=== PATIENT | female | born 1980 | race Hispanic/Latino ===

== ENCOUNTER 2018-10-09 21:35 | Inpatient (IN) | payer BC, OTHER ==
[2018-10-09 22:09] VITALS: BMI 40.6
[2018-10-09] MEDS ORDERED: Butorphanol Tartrate 1 MG/ML VIAL SLOW IVP PRN (22:14)
[2018-10-09] MEDS ORDERED: Promethazine HCl 25 MG/ML VIAL IM PRN (22:14)
[2018-10-09] MEDS ORDERED: NS / Oxytocin 40 units/1000ml 1,000 ML IV PRN (22:14)
[2018-10-09] MEDS ORDERED: Lidocaine 1% (PF) 30 ML VIAL SC PRN ×2 (22:14→23:25)
[2018-10-09 22:32] LABS: Hemoglobin 11.5 g/dL (12.0-16.0); Mean Corpuscular HGB CONC 33.1 g/dL (32.0-36.0); Mean Corpuscular Hemoglobin 26.7 pg (27.0-31.0); Mean Corpuscular Volume 80.7 fL (78.0-98.0); Mean Platelet Volume 10.2 fL (7.4-10.4); Platelet Count 198 thou/uL (130-400); RBC Distribution Width 15.1 % (11.5-14.5); White Blood Cell (WBC) Count 9.2 thou/uL (4.8-10.8)
[2018-10-09] MEDS: hydrALAZINE 20 MG/ML VIAL SLOW IVP PRN ×3 (22:46→23:15)
[2018-10-09] MEDS: Lactated Ringer's 1,000 ML IV SCH (22:49)
[2018-10-09] MEDS ORDERED: hydrALAZINE 20 MG/ML VIAL SLOW IVP PRN (23:04)
[2018-10-09 23:07] LABS: Creatinine, Urine 153.45 mg/dL (47-110)
[2018-10-09 23:13] LABS: Syphilis Antibody Nonreactive (Nonreactive); Syphilis Antibody Index 0.07 S/CO (<1.00 Non-Reactive)
[2018-10-09] MEDS ORDERED: Calcium Gluc 4.6 MEQ/10 ML (100 MG/ML) SLOW IVP PRN (23:17)
[2018-10-09] MEDS ORDERED: Magnesium Sulfate 20 gm/500 ml 20 GM/500 ML BAG ONE (23:18)
[2018-10-09] MEDS ORDERED: HYDROcodone/Acetaminophen 5/325 mg Tablet PO PRN ×2 (23:25)
[2018-10-09] MEDS ORDERED: Ibuprofen 800 MG TAB PO PRN (23:25)
[2018-10-09] MEDS ORDERED: Penicillin G Potassium 5 MILL.UNITS in Sodium Chloride 0.9% 100 ML IVPB SCH (23:30)
[2018-10-09] MEDS ORDERED: Magnesium Sulfate 20 GM/WATER 500 ML BAG IVPB SCH (23:30)
[2018-10-09 23:58] LABS: HBSAg Index 0.19 S/CO (0-0.99); Hep B Surf Ag Non-Reactive S/CO (NonReactive)
--- NOTE | 2018-10-10 00:24 | PRG ---
DATE OF SERVICE: TIME OF SERVICE: 2325 Hours. Laboratory values resulted the patient's platelet counts within normal limits at 198,000, hematocrit of 37.4%, AST is normal at 17%. The patient's protein to creatinine ratio is actually approximately 1.6, which is consistent with 4+ proteinuria and consistent with preeclampsia. Blood pressures continue to run in the 170s to 180s systolic. We will continue to administer hydralazine, consider switching over to IV labetalol if necessary, although I am somewhat hesitant since the patient is already on 400 mg a day of labetalol to do this. We will begin magnesium sulfate prophylaxis. We will await ultrasound results to establish that the fetus is in cephalic presentation. If so, we will begin Cytotec and then Pitocin, induction of labor. If breech presentation, we will proceed with primary section with stabilized blood pressures. Job ID: [id number]
[2018-10-10] MEDS: Misoprostol 100 MCG TAB VAG SCH ×7 (00:31→21:39)
[2018-10-10] MEDS: hydrALAZINE 20 MG/ML VIAL SLOW IVP PRN ×3 (02:12→22:43)
[2018-10-10] MEDS: NS w/ Oxytocin 10 units 500 ML IV SCH ×2 (03:51→15:53)
[2018-10-10] MEDS: Citalopram 10 MG TAB PO SCH ×2 (03:51→21:40)
[2018-10-10] MEDS: Penicillin G 2.5 MILL.units 2.5 MILL.UNITS in Premix Bag 1 BAG IVPB SCH ×6 (03:52→21:40)
[2018-10-10] MEDS ORDERED: Acetaminophen 500 MG TAB PO SCH (05:00)
--- NOTE | 2018-10-10 05:58 | HP ---
TIME OF SERVICE: 2300 Hours. PRESENTING COMPLAINT: Elevated blood pressures at 35 weeks' gestation. HISTORY OF PRESENT ILLNESS: Ms. Robertson is a 38-year-old G5, P1, Ab3, who is well known to myself and is under my care at [facility]. She is a known chronic hypertensive with adult onset diabetes and obesity. She is visiting through first trimester of her . She has had well-controlled blood pressure on labetalol 200 p.o. b.i.d. along with good control of her diabetes, on metformin 1000 b.i.d. along with Lantus 15 b.i.d. She reports today some mild headache and was noted to have elevated blood pressures at home, 160s to 180s systolic over 90s diastolic. She denies headache or right upper quadrant pain. Blood pressures have been well controlled throughout her . OB-TRUST ADMINISTRATOR HISTORY: x1 with induction at term and SAB x3. Blood type A positive. Antibody negative. Pap negative. Rubella immune. VDRL, nonreactive. Hepatitis B , GC, chlamydia are negative. Group B strep done today. MEDICAL HISTORY: Diabetes and hypertension. SURGICAL HISTORY: Denies. ALLERGIES: DENIES. MEDICATIONS: 1. Metformin 1000 b.i.d. 2. Labetalol 200 b.i.d. 3. Citalopram 20 p.o. daily. 4. Lantus 15 sq b.i.d. SOCIAL HISTORY: Denies tobacco, alcohol or drug use. FAMILY HISTORY: Noncontributory. REVIEW OF SYSTEMS: Noncontributory. PHYSICAL EXAMINATION: GENERAL: Morbidly obese, female, in no acute distress. DTRs 1+. VITAL SIGNS: Temperature 98.5, respirations 18, pulse 85, blood pressure on initial presentation 178/92. HEENT: Within normal limits. LUNGS: Clear to auscultation bilaterally. HEART: Regular rate and rhythm. ABDOMEN: Soft and nontender. Fundal height 37 cm. FHT is 140s. Vulvar lesions absent, difficult to reach cervix, posteriorly closed, long, and high, presenting part not palpable. EXTREMITIES: Mild edema 1+. IMPRESSION: Chronic hypertension with adult onset diabetes, requiring insulin and oral hypoglycemics at 35 weeks' gestation by good criteria, now with elevated blood pressures. PLAN: PI labs. Continue current medications. Add hydralazine IV q.15 minutes as needed for systolics 170s or greater, we will get ultrasound to establish position. We will see how her blood pressure responds and consider magnesium sulfate for seizure prophylaxis. Anticipate need for induction of labor for severe gestational hypertension versus preeclampsia with adult onset diabetes. We will make decision on administration of magnesium sulfate based on laboratory results as well as sustained blood pressures. Job ID: [id number] MTDD
[2018-10-10] MEDS ORDERED: Fentanyl 4 mcg/Bup 0.1% Cadd 100 ML ONE ×2 (06:49→15:03)
[2018-10-10] MEDS: Magnesium Sulfate 20 gm/500 ml 20 GM/500 ML BAG IVPB SCH ×2 (07:14→16:49)
--- NOTE | 2018-10-10 07:33 | PRG ---
DATE OF SERVICE: 10/10/2018 TIME OF SERVICE: 0645 hours. SUBJECTIVE: Ms. Robertson is resting comfortably. She denies headache at this time. OBJECTIVE: VITAL SIGNS: The patient remains afebrile. Normal pulse. Normal respiratory rate. Blood pressures have ranged 140s to 170s systolic. Overnight, she has received a total of 4 doses of hydralazine, the last being 5 mg IV at approximately 0230. The patient has had good urine output of greater than 100 mL per hour. heart rate tracings remained category 1. LUNGS: Clear to auscultation bilaterally. HEART: Regular rate and rhythm. ABDOMEN: Soft. She has palpable contractions, which she is feeling at this time. GENITALIA: Vulva without lesions. Vagina is without discharge. Cervical exam by RN with Cytotec placement for the last 30 minutes was 1, 25, and -2, cephalic. EXTREMITIES: Without clubbing or cyanosis, and pertinent 1 to 2+ edema, 1+ DTRs. LABORATORY DATA: [id number] glucose at midnight was 126, checking q.6 hours. Reports ultrasound was performed, which revealed cephalic presentation with adequate amniotic fluid. IMPRESSION: Severe preeclampsia due to blood pressure criteria with marked proteinuria in a background of chronic hypertension and insulin-dependent adult-onset diabetes at 35 weeks' gestation. PLAN: 1. Continue magnesium sulfate. 2. Continue p.o. labetalol. 3. IV hydralazine as needed. 4. Decrease metformin and Lantus to one-half of normal dose while in labor on clear liquids. 5. Continue Cytotec and then initiate Pitocin. 6. Anticipate spontaneous vaginal delivery. We will discuss the patient's care and hand off to Dr. Monica Cortez, OB hospitalist at 0800 hours. Job ID: [id number]
[2018-10-10] MEDS ORDERED: metFORMIN 500 MG TAB PO SCH (08:00)
[2018-10-10] MEDS ORDERED: ePHEDrine/0.9% NaCl/PF SYRINGE 50 mg/10 ml SLOW IVP PRN (08:27)
[2018-10-10] MEDS ORDERED: Lactated Ringer's 500 ML IV PRN (08:27)
[2018-10-10] MEDS ORDERED: Naloxone HCl 0.4 mg/ml Vial IVP PRN ×2 (08:27)
[2018-10-10] MEDS ORDERED: Eucerin (Mineral Oil/Petrolatum,White) 30 gm Jar TOP PRN (08:27)
[2018-10-10] MEDS: metFORMIN 500 MG TAB PO SCH ×2 (08:29→17:13)
[2018-10-10] MEDS ORDERED: Fentanyl 4 mcg/Bupivacaine 0.1% Cassette 100 ML EPIDURAL SCH (08:30)
[2018-10-10] MEDS ORDERED: Communication Order-Pharmacy FS SCH (08:30)
[2018-10-10] MEDS: Labetalol 100 MG TAB PO SCH ×2 (08:30→21:07)
[2018-10-10] MEDS ORDERED: Insulin Glargine 10 UNITS in Pre-Filled Syringe 1 EACH SC SCH ×2 (09:00→21:00)
[2018-10-10] MEDS ORDERED: Citalopram 10 MG TAB PO SCH (09:00)
[2018-10-10] MEDS ORDERED: Insulin Glargine 7 UNITS in Pre-Filled Syringe 1 EACH SC SCH ×2 (09:00→21:00)
--- NOTE | 2018-10-10 09:12 | ULT ---
PRELIMINARY REPORT/[facility]/EMERGENTY AFTER-HOURS PROCEDURE US After First Trimester, Transabdominal EXAM DATE/TIME: 10/09/2018 11:31 PM CLINICAL HISTORY: 38 years old, female; Condition or disease; Lmp or gestational age (weeks): 36w4d; Pre-eclampsia; 6th ; ; Patient HX: Evaluated position, efw and sherrie TECHNIQUE: Real-time transabdominal obstetrical ultrasound of the maternal pelvis and a second or third trimeste r with image documentation. COMPARISON: No relevant prior studies available. FINDINGS: GESTATION: Gestation: Single live intrauterine gestation. Heart rate: heart rate 149 beats per minute. Presentation: position is vertex. Placenta: Placenta is anterior and unremarkable. Amniotic fluid: Amniotic fluid volume is normal with an SHERRIE of 14.2 cm. BIOMETRY: Estimated gestational age: biometry measurements are compatible with estimated gestational age of 36 weeks 4 days. Estimated weight: Estimated weight is 3023 g. IMPRESSION: Single live intrauterine gestation as above. Thank you for allowing us to participate in the care of your patient. Dictated and Authenticated by: Wilber Polanco MD 10/10/2018 12:21 AM Central Time ([place] & [place]) FINAL REPORT OB ULTRASOUND: HISTORY: Third-trimester . Preeclampsia. Evaluate fetus. FINDINGS: Multiple longitudinal and transverse images of an intrauterine are obtained. Real-time, co eliz flow, and M-mode sonography demonstrates a viable IUP. The fetus is in a cephalic presentation. The placenta is anterior and grade II. Amniotic fluid index measures 14.2 cm. Estimated gestationa l age is 36 weeks 4 days with an estimated date of delivery November 02, 2018. Estimated weigh t is 3023 gm +/- 447 gm. Final report. Preliminary exam was performed by [facility]. I conc ur with the dictation from [facility]. POS: [facility]
[2018-10-10] MEDS: Ondansetron PF 4 MG/2 ML Vial IVP PRN (12:58)
[2018-10-10] MEDS: Lactated Ringer's 1,000 ML IV SCH (13:02)
[2018-10-10] MEDS ORDERED: Acetaminophen 500 MG TAB PO PRN (13:07)
--- NOTE | 2018-10-10 17:16 | PDOC.LDPN ---
Labor & Delivery Progress Note - Subjective Subjective: comfortable - Objective Vital signs reviewed and normal: yes General: NAD, resting Uterine fundus: non tender Dilation: 6 Effacement: 75% Station: -2 FHT: category 1 AROM: clear fluid FSE placed: yes Plan: continue plan of care
[2018-10-10] MEDS: NS / Oxytocin 40 units/1000ml 1,000 ML IV PRN ×2 (20:00→21:03)
--- NOTE | 2018-10-10 20:18 | PDOC.OPDEL ---
OB Operative/Delivery Note Delivery Dr/Surgeon: Monica Cortez MD Pre-Delivery Diagnosis: medically indicated induction Procedure/Post Delivery Dx: spontaneous vaginal delivery Weeks gestation: 35 Anesthesia: epidural - Findings A Sex: male (Doron Figueroa) Weight: 6 lb 7 oz - 1 min: 6 - 5 min: 7 - Additional Findings/Plan Placenta delivered: spontaneous Repaired Obstetrical Laceration: none Estimated blood loss: 243ml Compilations/Other Findings: Male infant delivered over intact perineum and handed to waiting NICU team. Spontaneous cry but needed CPAP in warmer. Mom doing well. Post delivery plan: recovery in LICU
[2018-10-10] MEDS ORDERED: Misoprostol 200 MCG TAB VAG PRN (20:34)
[2018-10-10] MEDS ORDERED: Benzocaine/Menthol 20-0.5% 60 ML CAN TOP PRN (20:34)
[2018-10-10] MEDS ORDERED: Lanolin Ointment 7 GM TUBE TOP PRN (20:34)
[2018-10-10] MEDS ORDERED: diphenhydrAMINE 25 MG CAP PO PRN (20:34)
[2018-10-10] MEDS ORDERED: Bisacodyl 10 MG SUPP PR PRN (20:34)
[2018-10-10] MEDS ORDERED: Milk Of Magnesia 30 ML UDCUP PO PRN (20:34)
[2018-10-10] MEDS ORDERED: Methylergonovine 0.2 MG/ML VIAL IM PRN (20:34)
[2018-10-10] MEDS ORDERED: Preparation H Ointment 28 GM TUBE PR PRN (20:34)
[2018-10-10] MEDS ORDERED: HYDROcodone/Acetaminophen 5/325 mg Tablet PO PRN ×2 (20:34)
[2018-10-10] MEDS ORDERED: Calcium Gluconate 4.6 MEQ in Sodium Chloride 0.9% 100 ML IVPB PRN (20:36)
[2018-10-10] MEDS ORDERED: Magnesium Sulfate 20 gm/500 ml 20 GM/500 ML BAG IVPB SCH (20:45)
[2018-10-10] MEDS ORDERED: NS / Oxytocin 40 units/1000ml 1,000 ML IV SCH (20:45)
[2018-10-10] MEDS: Docusate Calcium (SURFAK) 240 MG CAP PO SCH (21:08)
[2018-10-10] MEDS: Ibuprofen 800 MG TAB PO SCH (22:23)
[2018-10-11] MEDS: Magnesium Sulfate 20 gm/500 ml 20 GM/500 ML BAG IVPB SCH (02:54)
[2018-10-11] MEDS: Ibuprofen 800 MG TAB PO SCH (06:16)
--- NOTE | 2018-10-11 07:29 | PDOC.PP ---
Post Progress Note Post Day #: 1 Subjective: Complains of mild head and neck ache, believes it is from the position she has been lying in. Requesting Tylenol. Otherwise is without complaints this morning. Vital Signs (12 hours) Temp Pulse Resp BP BP 10/10/18 22:43 99 179/87 H 10/10/18 21:07 93 156/68 H 10/10/18 20:37 98.3 F 106 H 18 163/74 H 10/10/18 20:35 98.3 F 106 H 18 163/74 H Weight Weight 222 lb - Physical Examination General: NAD Respiratory: non-labored breathing Abdominal: lochia (normal), no distention, appropriately TTP Fundus firm & at: U-3 Extremities: negative homans (B) Neurological: no gross focal deficits Psychiatric: A&Ox3, normal affect Result Diagrams: 10/09/18 22:17 Additional Labs: Post Labs Blood Type A POSITIVE 10/09/18 22:17 Hep Bs Antigen Non-Reactive S/CO (NonReactive) 10/09/18 22:17 (1) Pre-eclampsia superimposed on chronic hypertension, delivered Code(s): O11.4 - PRE-EXISTING HTN WITH PRE-ECLAMPSIA, COMP CHILDBIRTH; O10.92 - UNSP PRE-EXISTING HYPERTENSION COMPLICATING CHILDBIRTH Status: Acute (2) Morbid obesity Code(s): E66.01 - MORBID (SEVERE) OBESITY DUE TO EXCESS CALORIES Status: Acute (3) Diabetes in Code(s): O24.919 - UNSP DIABETES MELLITUS IN , UNSPECIFIED TRIMESTER Status: Acute - Assessment/Plan Continue routine care. Magnesium to continue through 24 hours post delivery. Given Tylenol for headache.
[2018-10-11] MEDS: Ondansetron PF 4 MG/2 ML Vial IVP PRN (07:49)
[2018-10-11] MEDS ORDERED: metFORMIN 500 MG TAB PO SCH ×2 (08:00→09:00)
[2018-10-11] MEDS ORDERED: Ibuprofen 800 MG TAB PO SCH (08:45)
[2018-10-11] MEDS ORDERED: Measles/Mumps/Rubella 10 MCG/0.5 ML VIAL SC ONE (09:00)
[2018-10-11] MEDS ORDERED: Varicella virus, LIVE 0.5 ML VIAL SC ONE (09:00)
[2018-10-11] MEDS ORDERED: Adacel (T-DAP) 0.5 ML SYRINGE IM ONE (09:00)
[2018-10-11] MEDS ORDERED: Calcium Gluconate 4.6 MEQ in Sodium Chloride 0.9% 100 ML IVPB SCH (09:00)
[2018-10-11] MEDS: Docusate Calcium (SURFAK) 240 MG CAP PO SCH ×2 (09:13→21:58)
[2018-10-11] MEDS: Prenatal Vitamin 1 TAB PO SCH (09:14)
[2018-10-11 09:20] LABS: #Lymphocytes 1.5 thou/uL (1.20-3.40); #Monocytes 0.5 thou/uL (0.11-0.59); #Neutrophils 8.5 thou/uL (1.40-6.50); %Basophils 0.3 % (0.0-1.0); %Eosinophils 0.4 % (0.0-10.0); %Lymphocytes 14.2 % (21.0-51.0); %Monocytes 4.7 % (0.0-10.0); %Neutrophils 80.4 % (42.0-75.0); Hemoglobin 10.4 g/dL (12.0-16.0); Mean Corpuscular Hemoglobin 26.2 pg (27.0-31.0); Mean Corpuscular Volume 82.1 fL (78.0-98.0); Platelet Count 160 thou/uL (130-400); RBC Distribution Width 15.3 % (11.5-14.5); Red Blood Cell (RBC) Count 3.95 mill/uL (4.20-5.40); White Blood Cell (WBC) Count 10.6 thou/uL (4.8-10.8)
[2018-10-11 09:43] LABS: AST (SGOT) 28 U/L (5-34); Anion Gap 12 mmol/L (10-20); BUN (Urea Nitrogen) 6 mg/dL (7.0-18.7); Calc. Creatinine Clearance 220 mL/min (70-130); Calcium 7.2 mg/dL (7.8-10.44); Carbon Dioxide 18 mmol/L (22-29); Chloride 105 mmol/L (98-107); Estimated GFR-MDRD Greater than 90; Glucose 107 mg/dL (70-105); Magnesium 4.9 mg/dL (1.6-2.6); Potassium 4.1 mmol/L (3.5-5.1); Sodium 131 mmol/L (136-145)
[2018-10-11] MEDS: Insulin Glargine 5 UNITS in Pre-Filled Syringe 1 EACH SC SCH ×2 (09:45→21:55)
[2018-10-11] MEDS: Citalopram 10 MG TAB PO SCH (09:49)
[2018-10-11] MEDS: hydrALAZINE 20 MG/ML VIAL SLOW IVP PRN ×5 (09:55→13:57)
[2018-10-11] MEDS: Ferrous Sulfate 325 MG TAB PO SCH ×2 (10:47→19:30)
[2018-10-11] MEDS ORDERED: Furosemide 40 MG/4 ML VIAL SLOW IVP PRN (11:09)
[2018-10-11] MEDS ORDERED: Furosemide 40 MG/4 ML VIAL SLOW IVP SCH (11:15)
[2018-10-11] MEDS: Acetaminophen 500 MG TAB PO PRN ×2 (12:17→19:39)
[2018-10-11] MEDS: Lactated Ringer's 1,000 ML IV SCH (12:19)
[2018-10-11] MEDS ORDERED: Labetalol 100 MG TAB PO SCH (12:45)
[2018-10-11] MEDS: metFORMIN 500 MG TAB PO SCH (18:00)
[2018-10-11] MEDS: Labetalol HCl 100 MG/20 ML VIAL SLOW IVP PRN (20:42)
[2018-10-11] MEDS ORDERED: NIFEdipine XL 30 MG TAB PO SCH (21:15)
[2018-10-11] MEDS: Labetalol 100 MG TAB PO SCH (21:57)
[2018-10-11] MEDS: NIFEdipine XL 30 MG TAB PO SCH (22:00)
[2018-10-12] MEDS: Ibuprofen 800 MG TAB PO SCH ×4 (01:56→22:10)
[2018-10-12] MEDS: Sodium Chloride 0.9% 10 ML ONE (02:01)
[2018-10-12] MEDS: Labetalol HCl 100 MG/20 ML VIAL SLOW IVP PRN (05:26)
[2018-10-12] MEDS: Ferrous Sulfate 325 MG TAB PO SCH ×2 (08:00→18:54)
[2018-10-12] MEDS: metFORMIN 500 MG TAB PO SCH ×2 (08:10→17:08)
--- NOTE | 2018-10-12 09:13 | PRG ---
DATE OF SERVICE: SUBJECTIVE: The patient is a 38-year-old female, who is now day two, status post spontaneous vaginal delivery complicated by chronic hypertension, superimposed preeclampsia, and type 2 diabetes. The patient's course has been complicated by IV magnesium for seizure prophylaxis and series of severe range blood pressures yesterday. She required several doses of IV hydralazine and IV labetalol. Ultimately, the patient is being continued on 200 mg of labetalol twice a day with Procardia XL 30 mg once a day added to her regimen. The patient's blood pressures since about 10 o'clock last night have primarily been in the mild range. The patient reports she is tolerating p.o., voiding on her own, having decreased lochia and good pain control. Magnesium was turned off last night about 8:30. OBJECTIVE: VITAL SIGNS: It appears her most current blood pressure is 158/70, heart rate of 80, respiratory rate 17, temperature 98.2. GENERAL: She appears to be in no acute distress. She is alert, oriented, cooperative, pleasant to interact with. HEAD: Normocephalic, atraumatic. ABDOMEN: Fundus is firm. EXTREMITIES: Nontender with some edema. ASSESSMENT AND PLAN: The patient is a 38-year-old day two, status post spontaneous vaginal delivery at 35 weeks after indicated induction for chronic hypertension, superimposed preeclampsia. Blood pressures have appeared to be much better controlled now with labetalol 200 twice a day and Procardia 30 mg once a day. The patient is safe to transfer to the floor for continued care. We will continue to watch her blood pressures over the next 24 hours. If they remain within the mild range, the patient can be discharged tomorrow. Job ID: [id number] [facility]
[2018-10-12] MEDS: Citalopram 10 MG TAB PO SCH (09:22)
[2018-10-12] MEDS: Labetalol 100 MG TAB PO SCH ×2 (09:22→20:20)
[2018-10-12] MEDS: Prenatal Vitamin 1 TAB PO SCH (09:24)
[2018-10-12] MEDS: Docusate Calcium (SURFAK) 240 MG CAP PO SCH ×2 (09:24→20:19)
[2018-10-12] MEDS ORDERED: Milk Of Magnesia 30 ML UDCUP PO PRN (09:27)
[2018-10-12] MEDS: NIFEdipine XL 30 MG TAB PO SCH (09:39)
[2018-10-12] MEDS: Insulin Glargine 5 UNITS in Pre-Filled Syringe 1 EACH SC SCH ×2 (09:43→22:09)
[2018-10-12] MEDS ORDERED: NIFEdipine 10 MG CAP ONE (13:53)
--- NOTE | 2018-10-12 14:05 | PDOC.EVN ---
Event Note - Event Note Event Note: OBPAOLA Scale Technician Unit: L&D PPD2 Time of intervention: 1355 Called prior to floor transport that that patient, now PPD2 from , had a systolic BP of 174/84 (ASX). Meds are Procardia 30mg XL po QAM, Labetolol 200mg po BID. I just ordered procardia 10mg po x 1 now for urgent hypertension. We will do serial BP checks after dose and if less than 150 we can transfer to [facility].
[2018-10-12] MEDS ORDERED: NIFEdipine 10 MG CAP PO SCH ×2 (14:15→18:00)
--- NOTE | 2018-10-12 15:28 | PDOC.EVN ---
Event Note - Event Note Event Note: L&D: Post nifedpine dose: Med given at 1355: Follow up BPs: 180/81, 164/75, 148/70, 161/75. I will increase labetolol from 200mg po BID to 400mg po BID
--- NOTE | 2018-10-12 17:54 | PDOC.EVN ---
Event Note - Event Note Event Note: Called 10 minutes ago about BP of 180/70. I have ordered nifedipine 20mg po X 1 now. I am on my way to see her now on 3SE
[2018-10-12] MEDS: Penicillin G 2.5 MILL.units 2.5 MILL.UNITS in Premix Bag 1 BAG IVPB SCH ×2 (19:02→19:03)
[2018-10-12] MEDS: Misoprostol 100 MCG TAB VAG SCH ×2 (19:02→19:03)
--- NOTE | 2018-10-12 19:44 | PRG ---
DATE OF SERVICE: 10/12/2018 TIME OF EVALUATION: 1800 hours to 1805 hours. LOCATION: [facility]. REASON FOR EVALUATION: Called for blood pressure evaluation. I was called because the patient's blood pressure was 180, but asymptomatic. I saw the patient at bedside along with Leti, the patient's nurse. The patient states that she is doing well. No headaches or visual changes. No right upper quadrant pain. I discussed with her the plan to give her Procardia 20 mg immediate release now to bring her systolic pressure down. The patient voiced understanding. PHYSICAL EXAMINATION: There is no significant lower extremity edema. PLAN: Plan was reviewed with her, family, and Leti at bedside. For now, we will do serial blood pressures after this medication is given to look for result. I have also discussed with her the adjustment of her labetalol from 200 up to 400 mg p.o. b.i.d. Job ID: [id number]
--- NOTE | 2018-10-12 20:10 | PDOC.EVN ---
Event Note - Event Note Event Note: BPs have responded...next labetolol 400mg is at 2100
[2018-10-13] MEDS ORDERED: Sodium Chloride 0.9% 10 ML ONE ×5 (00:42→19:14)
[2018-10-13] MEDS ORDERED: Furosemide 40 MG/4 ML VIAL SLOW IVP SCH (00:45)
[2018-10-13] MEDS: Labetalol HCl 100 MG/20 ML VIAL SLOW IVP PRN ×4 (01:29→19:22)
[2018-10-13] MEDS: Ibuprofen 800 MG TAB PO SCH ×3 (06:15→21:37)
[2018-10-13] MEDS ORDERED: NIFEdipine XL 30 MG TAB PO SCH ×2 (08:36→14:45)
[2018-10-13] MEDS: Ferrous Sulfate 325 MG TAB PO SCH ×2 (08:37→18:16)
[2018-10-13] MEDS: Prenatal Vitamin 1 TAB PO SCH (08:51)
[2018-10-13] MEDS: metFORMIN 500 MG TAB PO SCH ×2 (08:51→18:15)
[2018-10-13] MEDS: Insulin Glargine 5 UNITS in Pre-Filled Syringe 1 EACH SC SCH ×2 (08:52→21:37)
[2018-10-13] MEDS ORDERED: NIFEdipine XL 60 MG TAB PO SCH (09:00)
[2018-10-13] MEDS: Labetalol 100 MG TAB PO SCH ×2 (09:33→21:39)
--- NOTE | 2018-10-13 09:33 | PRG ---
DATE OF SERVICE: 10/13/2018 SUBJECTIVE: The patient is now day three, status post a spontaneous vaginal delivery for chronic hypertension with superimposed preeclampsia. Her course has been complicated by repeated severe range of blood pressures and has required multiple adjustments to her medications. This morning, the patient was beginning to spike severe range pressures again. We have increased her p.o. medications last night from 200 to 400 mg of labetalol twice a day. I will be increasing this morning her Procardia from 30 to 60 mg once a day and giving her a dose of IV labetalol for coverage in the short term. The patient reports that she is otherwise doing well and tolerating p.o., voiding on her own, having decreased lochia and good pain control. OBJECTIVE: VITAL SIGNS: Current blood pressure is 168/87, pulse of 82, temperature 98.6, respiratory rate of 20, and saturating 95% on room air. GENERAL: She appears to be in no acute distress. She is alert, oriented, cooperative, and pleasant to interact with. HEENT: Head is normocephalic and atraumatic. Fundus is firm. EXTREMITIES: Nontender and nonedematous. ASSESSMENT/PLAN: The patient is day three, status post a spontaneous vaginal delivery for chronic hypertension, superimposed preeclampsia. We will continue to monitor the patient in-house, as we are adjusting medications for appropriate coverage. Anticipate her to be with us for the next day or two. Job ID: [id number]
[2018-10-13] MEDS: Citalopram 10 MG TAB PO SCH (09:34)
[2018-10-13] MEDS: Docusate Calcium (SURFAK) 240 MG CAP PO SCH ×2 (09:34→21:37)
[2018-10-13] MEDS: Sodium Chloride 0.9% 10 ML ONE ×2 (11:05→18:15)
--- NOTE | 2018-10-13 11:08 | PDOC.EVN ---
Event Note - Event Note Event Note: Called by PP RN for elevated BP. Now 161/74. Feels well, denies PARADA or visual changes. Currently on Labetalol 400 po BID and Procardia XL increased to 60 po this AM. Will give Labetalol 20 mg IV and consult Medicine Hospitalist for BP evaluation.
--- NOTE | 2018-10-13 22:03 | CON ---
DATE OF CONSULTATION: 10/13/2018 CONSULTING PHYSICIAN: Dr. Clark. REASON FOR CONSULTATION: Blood pressure management. HISTORY OF PRESENT ILLNESS: The patient is a 38-year-old, post premature delivery in a patient who has a history of hypertension and diabetes, who delivered a baby boy 3 days ago and the primary team had a hard time to control her blood pressure. PAST MEDICAL HISTORY: Positive for, 1. Diabetes mellitus type 2. 2. Hypertension. 3. Anxiety. PAST SURGICAL HISTORY: None. MEDICATIONS: Prior to , 1. Lisinopril. 2. Citalopram. 3. Metformin. Medications she is taking now, 1. Citalopram 10 mg once a day. 2. Labetalol 400 mg twice a day. 3. Metformin 500 mg twice a day. 4. P.r.n. hydralazine for blood pressure control. 5. Labetalol for blood pressure control. 6. The patient is also on insulin glargine 5 units every morning. FAMILY HISTORY: Father and mother had hypertension and hyperlipidemia. SOCIAL HISTORY: She does not have any history of cigarette smoking, alcohol intake or use of any illicit drugs. ALLERGIES: NONE. REVIEW OF SYSTEMS: All 14 systems were reviewed and this review is only positive for symptoms, which are mentioned in HPI. PHYSICAL EXAMINATION: VITAL SIGNS: Blood pressure is 153/74, pulse is 89, respiratory rate is 20, O2 saturation 95% on room air. She is obese. Her BMI is 40. HEENT: Head is atraumatic, normocephalic. Eyes are PERRLA. Sclerae nonicteric. Oral mucosa is moist. NECK: Supple. No lymphadenopathy. Thyroid is not palpable. LUNGS: Clear. HEART: S1, S2 normal. No S3, no S4. No any murmur. ABDOMEN: Soft, obese, nontender. Uterus is not palpable. Bowel sounds are present. No organomegaly. EXTREMITIES: No clubbing, cyanosis, or edema. NEUROLOGIC: She is alert and oriented x4. There are no any motor or sensory deficits. Cranial nerves are intact. LABORATORY DATA: Glycemia is ranging from 83 to 140. Her kidney function is within normal limits. She showed some anemia with hemoglobin of 10.4, two days ago. IMPRESSION: 1. Hypertension, which is chronic. 2. Superimposed preeclampsia. PLAN AND RECOMMENDATION: The patient's labetalol and Procardia doses were increased recently in the last 24 hours, so my recommendation is to continue observation on those new doses of those two medications plus p.r.n. hydralazine or labetalol IV push as needed for systolic more than 160. Otherwise, we are going to give additional 30 mg of home nifedipine tonight and she will be on 90 mg of nifedipine tomorrow morning and 400 mg of labetalol twice a day and that is our recommendation regarding blood pressure. Thank you for allowing us to participate in this patient's care. Job ID: [id number]
--- NOTE | 2018-10-14 02:56 | PDOC.PP ---
Post Progress Note Post Day #: 4 Subjective: PP4 38 yo F patient still on PP being monitored for BP. The patient denies pain at this time. No headache, chest pain, or SOB, no leg swelling. Patient is walking, eating, and drinking without difficulty. Patient's BP medications have been titrated up quickly over the last 2 days. Patient states she has some anxiety about her bp, gets nervous when nurses check BP. Snoring upon examiner entering the room. PO intake tolerated: yes Flatus: yes Ambulation: yes Vital Signs (12 hours) Temp Pulse Resp BP BP BP BP 10/13/18 23:37 98.4 F 94 16 149/78 H 10/13/18 22:55 89 159/82 H 10/13/18 21:39 95 165/88 H 10/13/18 21:35 95 18 165/88 H 10/13/18 20:05 10/13/18 19:45 98.7 F 88 16 162/78 H 10/13/18 19:22 86 179/83 H 10/13/18 19:15 86 172/83 H 10/13/18 18:53 179/86 H 10/13/18 18:08 178/76 H 10/13/18 16:46 97 161/80 H 10/13/18 16:00 98.3 F 103 H 16 159/77 H Pulse Ox 10/13/18 23:37 10/13/18 22:55 10/13/18 21:39 10/13/18 21:35 10/13/18 20:05 95 10/13/18 19:45 95 10/13/18 19:22 10/13/18 19:15 10/13/18 18:53 10/13/18 18:08 10/13/18 16:46 10/13/18 16:00 98 Weight Weight 100.698 kg - Physical Examination General: NAD Cardiovascular: no m/r/g, RRR Respiratory: clear to auscultation bilaterally Abdominal: + bowel sounds, appropriately TTP Fundus firm & at: umbilicus Extremities: negative homans (B) Skin: no rash Neurological: no gross focal deficits Psychiatric: A&Ox3, normal affect Result Diagrams: 10/11/18 09:00 10/11/18 09:00 Additional Labs: Post Labs Blood Type A POSITIVE 10/09/18 22:17 Hep Bs Antigen Non-Reactive S/CO (NonReactive) 10/09/18 22:17 (1) Diabetes in Code(s): O24.919 - UNSP DIABETES MELLITUS IN , UNSPECIFIED TRIMESTER Status: Acute (2) Morbid obesity Code(s): E66.01 - MORBID (SEVERE) OBESITY DUE TO EXCESS CALORIES Status: Acute (3) Pre-eclampsia superimposed on chronic hypertension, delivered Code(s): O11.4 - PRE-EXISTING HTN WITH PRE-ECLAMPSIA, COMP CHILDBIRTH; O10.92 - UNSP PRE-EXISTING HYPERTENSION COMPLICATING CHILDBIRTH Status: Acute (4) Vaginal delivery Code(s): O80 - ENCOUNTER FOR FULL-TERM UNCOMPLICATED DELIVERY Status: Acute - Assessment/Plan #PP day 4 - eating, drinking, voiding without difficulty # chronic HTN - labetalol increased to 400mg BID, also procardia increased to 90mg daily - will give adjustment some time for now - no pre-e sxs - will check CBC, CMP this AM - suspect anxiety, possible KG could contribute - patient quitting caffeine - only needed 1 PRN dose labetalol yesterday - appreciate hospitalist recs Dispo: 1-2 days <Paco Morton - Last Filed: 10/14/18 02:59> Vital Signs (12 hours) Temp Pulse Resp BP BP BP BP 10/14/18 03:58 98.6 F 97 17 156/82 H 10/13/18 23:37 98.4 F 94 16 149/78 H 10/13/18 22:55 89 159/82 H 10/13/18 21:39 95 165/88 H 10/13/18 21:35 95 18 165/88 H 10/13/18 20:05 10/13/18 19:45 98.7 F 88 16 162/78 H 10/13/18 19:22 86 179/83 H 10/13/18 19:15 86 172/83 H 10/13/18 18:53 179/86 H Pulse Ox 10/14/18 03:58 10/13/18 23:37 10/13/18 22:55 10/13/18 21:39 10/13/18 21:35 10/13/18 20:05 95 10/13/18 19:45 95 10/13/18 19:22 10/13/18 19:15 10/13/18 18:53 Weight Weight 100.698 kg Result Diagrams: 10/11/18 09:00 10/11/18 09:00 Additional Labs: Post Labs Blood Type A POSITIVE 10/09/18 22:17 Hep Bs Antigen Non-Reactive S/CO (NonReactive) 10/09/18 22:17 <Filiberto Santillan - Last Filed: 10/14/18 06:27> Attending Addendum - Attending Addendum Date/Time: 10/14/18626 I personally evaluated the patient and discussed the management with Dr. Morton. I agree with the Assessment and Plan documented above. <Filiberto Santillan - Last Filed: 10/14/18 06:27>
[2018-10-14] MEDS ORDERED: Sodium Chloride 0.9% 0 ML ONE (03:56)
[2018-10-14] MEDS: Ibuprofen 800 MG TAB PO SCH ×3 (06:03→21:24)
[2018-10-14 06:50] LABS: #Basophils 0.1 thou/uL (0.0-0.2); #Eosinphils 0.3 thou/uL (0.0-0.7); #Monocytes 0.5 thou/uL (0.11-0.59); #Neutrophils 5.2 thou/uL (1.40-6.50); %Basophils 1.3 % (0.0-1.0); %Eosinophils 3.6 % (0.0-10.0); %Lymphocytes 24.7 % (21.0-51.0); %Monocytes 5.6 % (0.0-10.0); %Neutrophils 64.8 % (42.0-75.0); Hemoglobin 10.9 g/dL (12.0-16.0); Mean Corpuscular HGB CONC 32.2 g/dL (32.0-36.0); Mean Corpuscular Hemoglobin 26.7 pg (27.0-31.0); Mean Platelet Volume 8.2 fL (7.4-10.4); Platelet Count 251 thou/uL (130-400); RBC Distribution Width 15.5 % (11.5-14.5); Red Blood Cell (RBC) Count 4.09 mill/uL (4.20-5.40)
[2018-10-14 07:13] LABS: ALT (SGPT) 46 U/L (8-55); AST (SGOT) 36 U/L (5-34); Albumin 3.1 g/dL (3.5-5.0); Alkaline Phosphatase 94 U/L (40-150); Anion Gap 15 mmol/L (10-20); BUN (Urea Nitrogen) 14 mg/dL (7.0-18.7); Bilirubin, Total 0.2 mg/dL (0.2-1.2); Calc. Creatinine Clearance 196 mL/min (70-130); Carbon Dioxide 23 mmol/L (22-29); Chloride 107 mmol/L (98-107); Estimated GFR-MDRD Greater than 90; Globulin 3.6 g/dL (2.4-3.5); Glucose 76 mg/dL (70-105); Potassium 3.7 mmol/L (3.5-5.1); Protein, Total 6.7 g/dL (6.0-8.3); Sodium 141 mmol/L (136-145)
[2018-10-14] MEDS: Ferrous Sulfate 325 MG TAB PO SCH ×2 (07:54→17:02)
--- NOTE | 2018-10-14 08:15 | PDOC.EVN ---
Event Note - Event Note Event Note: Admitting Officer: Lab check: CBC and CMP ok BP of 160 noted this AM: Increase Labetolol from 400mg BID to 600mg BID
[2018-10-14] MEDS: metFORMIN 500 MG TAB PO SCH ×2 (08:26→17:07)
[2018-10-14] MEDS: Insulin Glargine 5 UNITS in Pre-Filled Syringe 1 EACH SC SCH ×2 (09:42→21:22)
[2018-10-14] MEDS: Labetalol 100 MG TAB PO SCH ×2 (09:42→21:24)
[2018-10-14] MEDS: Citalopram 10 MG TAB PO SCH (09:43)
[2018-10-14] MEDS: Prenatal Vitamin 1 TAB PO SCH (09:43)
[2018-10-14] MEDS: NIFEdipine XL 90 MG TAB PO SCH (09:43)
[2018-10-14] MEDS: Docusate Calcium (SURFAK) 240 MG CAP PO SCH ×2 (09:43→21:24)
--- NOTE | 2018-10-14 10:31 | PDOC.PN ---
- Subjective Encounter Start Date: 10/14/18 Encounter Start Time: 08:15 Patient seen and examined. No new complaints. No overnight events - Objective MAR Reviewed: Yes Vital Signs & Weight: Vital Signs (12 hours) Temp Pulse Resp BP BP Pulse Ox 10/14/18 08:00 98.3 F 98 16 161/81 H 96 10/14/18 03:58 98.6 F 97 17 156/82 H 10/13/18 23:37 98.4 F 94 16 149/78 H 10/13/18 22:55 89 159/82 H Weight Weight 222 lb I&O: 10/13/18 10/14/18 10/15/18 06:59 06:59 06:59 Intake Total 448 Output Total 1500 600 Balance -1500 -152 Result Diagrams: 10/14/18 06:05 10/14/18 06:07 Additional Labs: Accuchecks 10/14/18 10/14/18 10/14/18 07:25 07:05 06:02 POC Glucose 91 78 77 10/13/18 10/13/18 10/13/18 21:35 17:58 17:28 POC Glucose 109 84 79 10/13/18 10/13/18 10/13/18 14:22 13:40 10:58 POC Glucose 130 H 79 84 Phys Exam - Physical Examination Constitutional: NAD HEENT: PERRLA, moist MMs, sclera anicteric Neck: no JVD, supple Respiratory: no wheezing, no rales, no rhonchi Cardiovascular: RRR, no significant murmur, no rub Gastrointestinal: soft, non-tender, no distention, positive bowel sounds Musculoskeletal: no edema, pulses present Neurological: non-focal, normal sensation, moves all 4 limbs Lymphatic: no nodes Psychiatric: normal affect, A&O x 3 Skin: no rash, normal turgor Dx/Plan (1) Diabetes in Code(s): O24.919 - UNSP DIABETES MELLITUS IN , UNSPECIFIED TRIMESTER Status: Acute (2) Morbid obesity Code(s): E66.01 - MORBID (SEVERE) OBESITY DUE TO EXCESS CALORIES Status: Acute (3) Pre-eclampsia superimposed on chronic hypertension, delivered Code(s): O11.4 - PRE-EXISTING HTN WITH PRE-ECLAMPSIA, COMP CHILDBIRTH; O10.92 - UNSP PRE-EXISTING HYPERTENSION COMPLICATING CHILDBIRTH Status: Acute (4) Vaginal delivery Code(s): O80 - ENCOUNTER FOR FULL-TERM UNCOMPLICATED DELIVERY Status: Acute - Plan cont current plan of care * OB -[employer]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 Review of Systems - Review of Systems ENT: negative: Ear Pain, Ear Discharge, Nose Pain, Nose Discharge, Nose Congestion, Mouth Pain, Mouth Swelling, Throat Pain, Throat Swelling, Other Respiratory: negative: Cough, Dry, Shortness of Breath, Hemoptysis, SOB with Excertion, Pleuritic Pain, Sputum, Wheezing Cardiovascular: negative: chest pain, palpitations, orthopnea, paroxysmal nocturnal dyspnea, edema, light headedness, other Gastrointestinal: negative: Nausea, Vomiting, Abdominal Pain, Diarrhea, Constipation, Melena, Hematochezia, Other Genitourinary: negative: Dysuria, Frequency, Incontinence, Hematuria, Retention , Other Musculoskeletal: negative: Neck Pain, Shoulder Pain, Arm Pain, Back Pain, Hand Pain, Leg Pain, Foot Pain, Other - Medications/Allergies Allergies/Adverse Reactions: Allergies Allergy/AdvReac Type Severity Reaction Status Date / Time No Known Allergies Allergy Verified 10/09/18 21:58 Medications: Current Medications Acetaminophen (Tylenol) 1,000 mg PO Q6H PRN PRN Reason: Moderate to Severe Pain (6-10) Last Admin: 10/11/18 19:39 Dose: 1,000 mg Hydrocodone Bitart/Acetaminophen ([place] 5/325) 1 tab PO Q4H PRN PRN Reason: Moderate Pain (4-6) Hydrocodone Bitart/Acetaminophen ([place] 5/325) 2 tab PO Q4H PRN PRN Reason: Severe Pain (7-10) Benzocaine/Menthol (Dermoplast) 0 ml TOP PRN PRN PRN Reason: Pain Bisacodyl (Dulcolax) 10 mg [place] Q8H PRN PRN Reason: Constipation Citalopram Hydrobromide (Celexa) 10 mg PO DAILY [facility] Last Admin: 10/14/18 09:43 Dose: 10 mg Diphenhydramine HCl (Benadryl) 25 mg PO Q4H PRN PRN Reason: Itching Docusate Calcium (Surfak) 240 mg PO BID [facility] Last Admin: 10/14/18 09:43 Dose: 240 mg Fentanyl/Bupivacaine/Sodium Chlor (Epidural L&D Cassette) 0 ml EPIDURAL INF ROSS Ferrous Sulfate (Feosol) 325 mg PO BID-[facility] Last Admin: 10/14/18 07:54 Dose: Not Given Hydralazine HCl (Apresoline) 5 mg SLOW IVP Q15MIN PRN PRN Reason: SBP GREATER THAN 160 Last Admin: 10/11/18 10:21 Dose: 5 mg Hydralazine HCl (Apresoline) 10 mg SLOW IVP Q15MIN PRN PRN Reason: SBP GREATER THAN 160 Last Admin: 10/11/18 13:57 Dose: 10 mg Lactated Ringer's (Lactated Ringer's) 500 mls @ 999 mls/hr IV .Q31M PRN PRN Reason: Blood Pressure Oxytocin/Sodium Chloride (Ns / Pitocin 40 Units/1000 Ml) 1,000 mls @ 0 mls/hr IV .Q0M [facility] Insulin Glargine 5 units/ (Miscellaneous Medication) 0.05 mls @ 0 mls/hr SC HS [facility] Last Admin: 10/13/18 21:37 Dose: 0.05 mls Insulin Glargine 5 units/ (Miscellaneous Medication) 0.05 mls @ 0 mls/hr SC QAM [facility] Last Admin: 10/14/18 09:42 Dose: 0.05 mls Ibuprofen (Motrin) 800 mg PO Q8HR [facility] Last Admin: 10/14/18 06:03 Dose: 800 mg Labetalol HCl (Normodyne) 20 mg SLOW IVP Q20M PRN PRN Reason: Hypertension Last Admin: 10/13/18 19:22 Dose: 20 mg Labetalol HCl (Normodyne) 600 mg PO BID [facility] Last Admin: 10/14/18 09:42 Dose: 600 mg Lanolin (Lansinoh Ointment) 0 gm TOP PRN PRN PRN Reason: Breast Care Magnesium Hydroxide (Milk Of Magnesium) 30 ml PO DAILY PRN PRN Reason: 3rd/4th degree episiotomy/lac Magnesium Hydroxide (Milk Of Magnesium) 30 ml PO DAILY PRN PRN Reason: 3rd/4th degree episiotomy/lac Metformin HCl (Glucophage) 500 mg PO BID-[facility] Last Admin: 10/14/18 08:26 Dose: 500 mg Methylergonovine Maleate (Methergine) 0.2 mg IM Q4H PRN PRN Reason: Bleeding Mineral Oil/White Petrolatum (Eucerin Cream) 0 gm TOP PRN PRN PRN Reason: Itching Naloxone HCl (Narcan) 0.1 mg IVP Q1H PRN PRN Reason: Itching Nifedipine (Procardia Xl) 90 mg PO DAILY [facility] Last Admin: 10/14/18 09:43 Dose: 90 mg Phenyleph/Shark Oil/Min Oil/Petrol (Preparation H Ointment) 0 gm [place] TIDPRN PRN PRN Reason: Hemorrhoids Multivit/Folic Acid/Iron ( Vitamin) 1 tab PO DAILY [facility] Last Admin: 10/14/18 09:43 Dose: 1 tab
--- NOTE | 2018-10-15 02:15 | PRG ---
DATE OF SERVICE: 10/15/2018 day #5, status post vaginal delivery on 10/10/2019. LOCATION: [address] [place] [address]. TIME OF EVALUATION: 0102 hours. SUBJECTIVE: No new concerns at this time. OBJECTIVE: The patient had a blood pressure of 175/86 at 2115 hours on 10/14. The last blood pressure after that was 157/82. She has had some persistent blood pressures that remained with the systolic in the 160s. She had a repeat set of PIH labs drawn yesterday on 10/14, which were basically normal. Internal Medicine has also seen her as well. I have ordered a TSH for this morning. Other vital signs showed that she is afebrile with a temperature range of 98.4 to 98.2. MEDICATIONS: Currently include labetalol 600 mg p.o. b.i.d., Procardia 90 mg XL. I have just ordered hydralazine 25 mg p.o. b.i.d. to be given with labetalol dose. We will also give a p.r.n. hydralazine shortly for the persistent elevated blood pressure. PHYSICAL EXAMINATION: Unremarkable. ASSESSMENT: 1. This is a patient status post vaginal delivery at 35 weeks, who is now day #5. She is having persistent [id number] hypertension with Internal Medicine already consulted. Per the Internal Medicine consult note (by Dr. Gresham), he had recommended adjusting the oral medications, including hydralazine, therefore, I have ordered the medications to start on 10/15 morning dose. 2. No evidence of preeclampsia at this time, but her blood pressure prevents her from being discharged. We will continue with her diabetic medication as well, which is metformin and scheduled insulin. Her sugar control has been normal. Follow blood pressures today. Job ID: [id number]
[2018-10-15] MEDS ORDERED: Sodium Chloride 0.9% 10 ML ONE (05:09)
[2018-10-15] MEDS ORDERED: hydrALAZINE 25 MG TAB PO SCH ×3 (05:45→21:00)
--- NOTE | 2018-10-15 06:02 | PDOC.EVN ---
Event Note - Event Note Event Note: BP note at 0600: Notified about 30 minutes ago as I was entering a delivery, that systolic BP was 162. I asked to please give the AM dose of hydralazine now (25 mg po). Follow BP after new med.
[2018-10-15] MEDS: Ibuprofen 800 MG TAB PO SCH (06:34)
--- NOTE | 2018-10-15 07:20 | PDOC.EVN ---
Event Note - Event Note Event Note: Med adjustment on 10/15/18 at 0720: Patient's BP was 165 systolic after the oral hydralazine (25mg). She states she was on lisinopril 10mg po QD prior to ....I have stopped the hydralazine and ordered lisinopril 20mg po QD to see if that results in better control.
[2018-10-15] MEDS: Docusate Calcium (SURFAK) 240 MG CAP PO SCH ×2 (07:55→20:59)
[2018-10-15] MEDS: Prenatal Vitamin 1 TAB PO SCH (07:57)
[2018-10-15] MEDS: Citalopram 10 MG TAB PO SCH (07:57)
[2018-10-15] MEDS: Labetalol 100 MG TAB PO SCH ×2 (07:57→20:59)
[2018-10-15] MEDS: metFORMIN 500 MG TAB PO SCH ×2 (07:57→19:23)
[2018-10-15] MEDS: NIFEdipine XL 90 MG TAB PO SCH (08:03)
[2018-10-15] MEDS: Insulin Glargine 5 UNITS in Pre-Filled Syringe 1 EACH SC SCH ×2 (08:04→21:00)
[2018-10-15] MEDS: Ferrous Sulfate 325 MG TAB PO SCH ×2 (08:04→19:08)
--- NOTE | 2018-10-15 08:06 | PDOC.EVN ---
Event Note - Event Note Event Note: TSH is ok Fiollow BPs after new start of lisinopril 20mg
--- NOTE | 2018-10-15 08:39 | PDOC.PN ---
- Subjective Encounter Start Date: 10/15/18 Encounter Start Time: 07:40 Patient seen and examined. No new complaints. No overnight events she has no headache, feels tired after exertion - Objective MAR Reviewed: Yes Vital Signs & Weight: Vital Signs (12 hours) Temp Pulse Resp BP BP Pulse Ox 10/15/18 08:03 82 174/82 H 10/15/18 07:57 82 174/82 H 10/15/18 07:56 174/82 H 10/15/18 06:30 92 162/78 H 165/70 H 10/15/18 05:26 92 162/78 H 10/15/18 05:05 162/78 H 10/15/18 00:25 98.3 F 92 20 157/82 H 97 10/14/18 22:30 164/86 H 10/14/18 21:24 92 175/86 H 10/14/18 21:15 98.4 F 92 16 175/86 H 97 Weight Weight 222 lb I&O: 10/14/18 10/15/18 10/16/18 06:59 06:59 06:59 Intake Total 448 Output Total 600 Balance -152 Result Diagrams: 10/14/18 06:05 10/14/18 06:07 Additional Labs: Accuchecks 10/15/18 10/14/18 10/14/18 06:38 21:23 14:41 POC Glucose 77 89 107 10/14/18 11:04 POC Glucose 80 Phys Exam - Physical Examination Constitutional: NAD HEENT: PERRLA, moist MMs, sclera anicteric Neck: no JVD, supple Respiratory: no wheezing, no rales, no rhonchi Cardiovascular: RRR, no significant murmur, no rub Gastrointestinal: soft, non-tender, no distention, positive bowel sounds Musculoskeletal: no edema, pulses present Neurological: non-focal, normal sensation, moves all 4 limbs Psychiatric: normal affect, A&O x 3 Skin: no rash, normal turgor Dx/Plan (1) Morbid obesity Code(s): E66.01 - MORBID (SEVERE) OBESITY DUE TO EXCESS CALORIES Status: Chronic Comment: with BMI 40.6 (2) Pre-eclampsia superimposed on chronic hypertension, delivered Code(s): O11.4 - PRE-EXISTING HTN WITH PRE-ECLAMPSIA, COMP CHILDBIRTH; O10.92 - UNSP PRE-EXISTING HYPERTENSION COMPLICATING CHILDBIRTH Status: Resolved (3) Vaginal delivery Code(s): O80 - ENCOUNTER FOR FULL-TERM UNCOMPLICATED DELIVERY Status: Resolved (4) Hypertension Code(s): I10 - ESSENTIAL (PRIMARY) HYPERTENSION Status: Chronic Comment: not well controlled (5) Diabetes type 2, controlled Code(s): E11.9 - TYPE 2 DIABETES MELLITUS WITHOUT COMPLICATIONS Status: Chronic - Plan cont current plan of care, plan discussed w/ family * today lisionpril added * on procardia xl, labatolol. * will DC IBuprofen * I advised to check BP by herself with portable BP machine as she feels anxious when checked my medical staff and may be that's why reading high, will rule out that possibility * medication reviewed as below * symptomatic treatment Review of Systems - Review of Systems Constitutional: negative: fever, chills, sweats, weakness, malaise, other Eyes: negative: Pain, Vision Change, Conjunctivae Inflammation, Eyelid Inflammation, Redness, Other ENT: negative: Ear Pain, Ear Discharge, Nose Pain, Nose Discharge, Nose Congestion, Mouth Pain, Mouth Swelling, Throat Pain, Throat Swelling, Other Respiratory: SOB with Excertion. negative: Cough, Dry, Shortness of Breath, Hemoptysis, Pleuritic Pain, Sputum, Wheezing Cardiovascular: negative: chest pain, palpitations, orthopnea, paroxysmal nocturnal dyspnea, edema, light headedness, other Gastrointestinal: negative: Nausea, Vomiting, Abdominal Pain, Diarrhea, Constipation, Melena, Hematochezia, Other Genitourinary: negative: Dysuria, Frequency, Incontinence, Hematuria, Retention , Other Musculoskeletal: negative: Neck Pain, Shoulder Pain, Arm Pain, Back Pain, Hand Pain, Leg Pain, Foot Pain, Other Skin: negative: Rash, Lesions, Joseph, Bruising, Other - Medications/Allergies Allergies/Adverse Reactions: Allergies Allergy/AdvReac Type Severity Reaction Status Date / Time No Known Allergies Allergy Verified 10/09/18 21:58 Medications: Current Medications Acetaminophen (Tylenol) 1,000 mg PO Q6H PRN PRN Reason: Moderate to Severe Pain (6-10) Last Admin: 10/11/18 19:39 Dose: 1,000 mg Hydrocodone Bitart/Acetaminophen ([place] 5/325) 1 tab PO Q4H PRN PRN Reason: Moderate Pain (4-6) Hydrocodone Bitart/Acetaminophen ([place] 5/325) 2 tab PO Q4H PRN PRN Reason: Severe Pain (7-10) Benzocaine/Menthol (Dermoplast) 0 ml TOP PRN PRN PRN Reason: Pain Bisacodyl (Dulcolax) 10 mg [place] Q8H PRN PRN Reason: Constipation Citalopram Hydrobromide (Celexa) 10 mg PO DAILY [facility] Last Admin: 10/15/18 07:57 Dose: 10 mg Diphenhydramine HCl (Benadryl) 25 mg PO Q4H PRN PRN Reason: Itching Docusate Calcium (Surfak) 240 mg PO BID [facility] Last Admin: 10/15/18 07:55 Dose: 240 mg Fentanyl/Bupivacaine/Sodium Chlor (Epidural L&D Cassette) 0 ml EPIDURAL INF [facility] Ferrous Sulfate (Feosol) 325 mg PO BID-[facility] Last Admin: 10/15/18 08:04 Dose: Not Given Hydralazine HCl (Apresoline) 5 mg SLOW IVP Q15MIN PRN PRN Reason: SBP GREATER THAN 160 Last Admin: 10/11/18 10:21 Dose: 5 mg Hydralazine HCl (Apresoline) 10 mg SLOW IVP Q15MIN PRN PRN Reason: SBP GREATER THAN 160 Last Admin: 10/11/18 13:57 Dose: 10 mg Lactated Ringer's (Lactated Ringer's) 500 mls @ 999 mls/hr IV .Q31M PRN PRN Reason: Blood Pressure Oxytocin/Sodium Chloride (Ns / Pitocin 40 Units/1000 Ml) 1,000 mls @ 0 mls/hr IV .Q0M [facility] Insulin Glargine 5 units/ (Miscellaneous Medication) 0.05 mls @ 0 mls/hr SC HS [facility] Last Admin: 10/14/18 21:22 Dose: 0.05 mls Insulin Glargine 5 units/ (Miscellaneous Medication) 0.05 mls @ 0 mls/hr SC QAM [facility] Last Admin: 10/15/18 08:04 Dose: 0.05 mls Ibuprofen (Motrin) 800 mg PO Q8HR [facility] Last Admin: 10/15/18 06:34 Dose: 800 mg Labetalol HCl (Normodyne) 20 mg SLOW IVP Q20M PRN PRN Reason: Hypertension Last Admin: 10/13/18 19:22 Dose: 20 mg Labetalol HCl (Normodyne) 600 mg PO BID [facility] Last Admin: 10/15/18 07:57 Dose: 600 mg Lanolin (Lansinoh Ointment) 0 gm TOP PRN PRN PRN Reason: Breast Care Lisinopril (Zestril) 20 mg PO DAILY [facility] Last Admin: 10/15/18 07:56 Dose: 20 mg Magnesium Hydroxide (Milk Of Magnesium) 30 ml PO DAILY PRN PRN Reason: 3rd/4th degree episiotomy/lac Magnesium Hydroxide (Milk Of Magnesium) 30 ml PO DAILY PRN PRN Reason: 3rd/4th degree episiotomy/lac [facility] Last Admin: 10/15/18 07:57 Dose: 500 mg Methylergonovine Maleate (Methergine) 0.2 mg IM Q4H PRN PRN Reason: Bleeding Mineral Oil/White Petrolatum (Eucerin Cream) 0 gm TOP PRN PRN PRN Reason: Itching Naloxone HCl (Narcan) 0.1 mg IVP Q1H PRN PRN Reason: Itching Nifedipine (Procardia Xl) 90 mg PO DAILY [facility] Last Admin: 10/15/18 08:03 Dose: 90 mg Phenyleph/Shark Oil/Min Oil/Petrol (Preparation H Ointment) 0 gm [place] TIDPRN PRN PRN Reason: Hemorrhoids Multivit/Folic Acid/Iron ( Vitamin) 1 tab PO DAILY [facility] Last Admin: 10/15/18 07:57 Dose: 1 tab
[2018-10-15] MEDS ORDERED: Lisinopril 20 MG TAB PO SCH (09:00)
--- NOTE | 2018-10-16 07:21 | PDOC.PP ---
Post Progress Note Post Day #: PPD#6 Subjective: Denies [place] or blurry vision. No complaints. PO intake tolerated: yes Ambulation: yes Vital Signs (12 hours) Temp Pulse Resp BP BP BP BP 10/16/18 06:20 10/16/18 04:55 143/72 H 10/16/18 04:40 166/79 H 10/15/18 22:15 146/68 H 10/15/18 20:59 86 167/78 H 10/15/18 20:25 98.7 F 86 20 167/78 H BP Pulse Ox 10/16/18 06:20 146/81 H 10/16/18 04:55 10/16/18 04:40 10/15/18 22:15 10/15/18 20:59 10/15/18 20:25 97 Weight Weight 100.698 kg - Physical Examination General: NAD Respiratory: non-labored breathing Abdominal: no distention Psychiatric: A&Ox3, normal affect Result Diagrams: 10/14/18 06:05 10/14/18 06:07 Additional Labs: Post Labs Blood Type A POSITIVE 10/09/18 22:17 Hep Bs Antigen Non-Reactive S/CO (NonReactive) 10/09/18 22:17 - Assessment/Plan Persistant PP HTN with BPs over last 24 hrs to 160's+, now on 3 agents. Currently on Labetalol 600 BID, Procardia XL 90 QD. Will increase Lisinopril to 30 QD and observe. Appreciate any other insight from Medicine Hospitalists.
[2018-10-16] MEDS: metFORMIN 500 MG TAB PO SCH ×2 (08:51→18:34)
[2018-10-16] MEDS: Ferrous Sulfate 325 MG TAB PO SCH ×2 (08:51→17:41)
[2018-10-16] MEDS: Citalopram 10 MG TAB PO SCH (08:51)
[2018-10-16] MEDS: NIFEdipine XL 90 MG TAB PO SCH (08:52)
[2018-10-16] MEDS: Prenatal Vitamin 1 TAB PO SCH (08:52)
[2018-10-16] MEDS: Labetalol 100 MG TAB PO SCH ×2 (08:53→21:32)
[2018-10-16] MEDS: Lisinopril 20 MG TAB PO SCH (08:57)
[2018-10-16] MEDS: Insulin Glargine 5 UNITS in Pre-Filled Syringe 1 EACH SC SCH (08:59)
[2018-10-16] MEDS: Docusate Calcium (SURFAK) 240 MG CAP PO SCH ×2 (09:00→21:33)
--- NOTE | 2018-10-16 09:45 | PDOC.PN ---
- Subjective Encounter Start Date: 10/16/18 Encounter Start Time: 07:45 Patient seen and examined. No new complaints. No overnight events - Objective MAR Reviewed: Yes Vital Signs & Weight: Vital Signs (12 hours) Temp Pulse Resp BP BP BP BP 10/16/18 08:57 136/67 10/16/18 08:53 84 10/16/18 08:52 84 10/16/18 07:39 98.2 F 84 20 132/61 10/16/18 06:20 146/81 H 10/16/18 04:55 143/72 H 10/16/18 04:40 166/79 H 10/15/18 22:15 146/68 H Pulse Ox 10/16/18 08:57 10/16/18 08:53 10/16/18 08:52 10/16/18 07:39 99 10/16/18 06:20 10/16/18 04:55 10/16/18 04:40 10/15/18 22:15 Weight Weight 222 lb Result Diagrams: 10/14/18 06:05 10/14/18 06:07 Additional Labs: Accuchecks 10/16/18 10/15/18 10/15/18 06:23 20:59 16:15 POC Glucose 83 81 110 10/15/18 11:47 POC Glucose 95 Phys Exam - Physical Examination Constitutional: NAD HEENT: PERRLA, moist MMs, sclera anicteric, oral pharynx no lesions Neck: no JVD, supple Respiratory: no wheezing, no rales, no rhonchi Cardiovascular: RRR, no significant murmur, no rub Gastrointestinal: soft, non-tender, no distention, positive bowel sounds Musculoskeletal: no edema, pulses present Neurological: non-focal, normal sensation Lymphatic: no nodes Psychiatric: normal affect Skin: no rash, normal turgor Dx/Plan (1) Morbid obesity Code(s): E66.01 - MORBID (SEVERE) OBESITY DUE TO EXCESS CALORIES Status: Chronic Comment: with BMI 40.6 (2) Pre-eclampsia superimposed on chronic hypertension, delivered Code(s): O11.4 - PRE-EXISTING HTN WITH PRE-ECLAMPSIA, COMP CHILDBIRTH; O10.92 - UNSP PRE-EXISTING HYPERTENSION COMPLICATING CHILDBIRTH Status: Resolved (3) Vaginal delivery Code(s): O80 - ENCOUNTER FOR FULL-TERM UNCOMPLICATED DELIVERY Status: Resolved (4) Hypertension Code(s): I10 - ESSENTIAL (PRIMARY) HYPERTENSION Status: Chronic Comment: not well controlled (5) Diabetes type 2, controlled Code(s): E11.9 - TYPE 2 DIABETES MELLITUS WITHOUT COMPLICATIONS Status: Chronic - Plan cont current plan of care, plan discussed w/ family * today her lisinopril increased by primary team * I believe that her BP can be managed outpt basis with close follow up * discharge per primary team * DC accucheck, her blood sugar are well controlled. Review of Systems - Review of Systems ENT: negative: Ear Pain, Ear Discharge, Nose Pain, Nose Discharge, Nose Congestion, Mouth Pain, Mouth Swelling, Throat Pain, Throat Swelling, Other Respiratory: negative: Cough, Dry, Shortness of Breath, Hemoptysis, SOB with Excertion, Pleuritic Pain, Sputum, Wheezing Cardiovascular: negative: chest pain, palpitations, orthopnea, paroxysmal nocturnal dyspnea, edema, light headedness, other Gastrointestinal: negative: Nausea, Vomiting, Abdominal Pain, Diarrhea, Constipation, Melena, Hematochezia, Other Genitourinary: negative: Dysuria, Frequency, Incontinence, Hematuria, Retention , Other Musculoskeletal: negative: Neck Pain, Shoulder Pain, Arm Pain, Back Pain, Hand Pain, Leg Pain, Foot Pain, Other - Medications/Allergies Allergies/Adverse Reactions: Allergies Allergy/AdvReac Type Severity Reaction Status Date / Time No Known Allergies Allergy Verified 10/09/18 21:58 Medications: Current Medications Acetaminophen (Tylenol) 1,000 mg PO Q6H PRN PRN Reason: Moderate to Severe Pain (6-10) Last Admin: 10/11/18 19:39 Dose: 1,000 mg Hydrocodone Bitart/Acetaminophen ([place] 5/325) 1 tab PO Q4H PRN PRN Reason: Moderate Pain (4-6) Hydrocodone Bitart/Acetaminophen ([place] 5/325) 2 tab PO Q4H PRN PRN Reason: Severe Pain (7-10) Benzocaine/Menthol (Dermoplast) 0 ml TOP PRN PRN PRN Reason: Pain Bisacodyl (Dulcolax) 10 mg [place] Q8H PRN PRN Reason: Constipation Citalopram Hydrobromide (Celexa) 10 mg PO DAILY [facility] Last Admin: 12/10/18 08:51 Dose: 10 mg Diphenhydramine HCl (Benadryl) 25 mg PO Q4H PRN PRN Reason: Itching Docusate Calcium (Surfak) 240 mg PO BID [facility] Last Admin: 10/16/18 09:00 Dose: 240 mg Fentanyl/Bupivacaine/Sodium Chlor (Epidural L&D Cassette) 0 ml EPIDURAL INF [facility]) [facility] Last Admin: 10/16/18 08:51 Dose: Not Given Hydralazine HCl (Apresoline) 5 mg SLOW IVP Q15MIN PRN PRN Reason: SBP GREATER THAN 160 Last Admin: 10/11/18 10:21 Dose: 5 mg Hydralazine HCl (Apresoline) 10 mg SLOW IVP Q15MIN PRN PRN Reason: SBP GREATER THAN 160 Last Admin: 10/11/18 13:57 Dose: 10 mg Lactated Ringer's (Lactated Ringer's) 500 mls @ 999 mls/hr IV .Q31M PRN PRN Reason: Blood Pressure Oxytocin/Sodium Chloride (Ns / Pitocin 40 Units/1000 Ml) 1,000 mls @ 0 mls/hr IV .Q0M [facility] Insulin Glargine 5 units/ (Miscellaneous Medication) 0.05 mls @ 0 mls/hr SC QAM [facility] Last Admin: 10/16/18 08:59 Dose: 0.05 mls Labetalol HCl (Normodyne) 20 mg SLOW IVP Q20M PRN PRN Reason: Hypertension Last Admin: 10/13/18 19:22 Dose: 20 mg Labetalol HCl (Normodyne) 600 mg PO BID [facility] Last Admin: 10/16/18 08:53 Dose: 600 mg Lanolin (Lansinoh Ointment) 0 gm TOP PRN PRN PRN Reason: Breast Care Lisinopril (Zestril) 30 mg PO DAILY [facility] Last Admin: 10/16/18 08:57 Dose: 30 mg Magnesium Hydroxide (Milk Of Magnesium) 30 ml PO DAILY PRN PRN Reason: 3rd/4th degree episiotomy/lac Magnesium Hydroxide (Milk Of Magnesium) 30 ml PO DAILY PRN PRN Reason: 3rd/4th degree episiotomy/lac [facility]) [facility] Last Admin: 10/16/18 08:51 Dose: 500 mg Methylergonovine Maleate (Methergine) 0.2 mg IM Q4H PRN PRN Reason: Bleeding Mineral Oil/White Petrolatum (Eucerin Cream) 0 gm TOP PRN PRN PRN Reason: Itching Naloxone HCl (Narcan) 0.1 mg IVP Q1H PRN PRN Reason: Itching Nifedipine (Procardia Xl) 90 mg PO DAILY [facility] Last Admin: 10/16/18 08:52 Dose: 90 mg Phenyleph/Shark Oil/Min Oil/Petrol (Preparation H Ointment) 0 gm [place] TIDPRN PRN PRN Reason: Hemorrhoids Multivit/Folic Acid/Iron ( Vitamin) 1 tab PO DAILY [facility] Last Admin: 10/16/18 08:52 Dose: 1 tab
[2018-10-17] MEDS: Ferrous Sulfate 325 MG TAB PO SCH (10:33)
[2018-10-17] MEDS: metFORMIN 500 MG TAB PO SCH (10:34)
[2018-10-17] MEDS: Citalopram 10 MG TAB PO SCH ×2 (10:34→10:47)
[2018-10-17] MEDS: Insulin Glargine 5 UNITS in Pre-Filled Syringe 1 EACH SC SCH (10:35)
[2018-10-17] MEDS: Docusate Calcium (SURFAK) 240 MG CAP PO SCH (10:35)
[2018-10-17] MEDS: Lisinopril 20 MG TAB PO SCH (10:38)
[2018-10-17] MEDS: NIFEdipine XL 90 MG TAB PO SCH (10:47)
[2018-10-17] MEDS: Prenatal Vitamin 1 TAB PO SCH (10:47)
--- NOTE | 2018-10-17 11:04 | PDOC.PN ---
- Subjective Encounter Start Date: 10/17/18 Encounter Start Time: 07:00 -: old records requested/rev Patient seen and examined. No new complaints. No overnight events - Objective MAR Reviewed: Yes Vital Signs & Weight: Vital Signs (12 hours) Temp Pulse Resp BP BP Pulse Ox 10/17/18 10:47 88 10/17/18 10:38 136/67 10/17/18 07:53 98.3 F 88 20 148/74 H 98 Weight Weight 222 lb Result Diagrams: 10/14/18 06:05 10/14/18 06:07 Additional Labs: Accuchecks 10/16/18 10/16/18 16:08 12:23 POC Glucose 82 90 Phys Exam - Physical Examination Constitutional: NAD HEENT: PERRLA, moist MMs, sclera anicteric Neck: no JVD, supple Respiratory: no wheezing, no rales, no rhonchi Cardiovascular: RRR, no significant murmur, no rub Gastrointestinal: soft, non-tender, no distention, positive bowel sounds Musculoskeletal: no edema, pulses present Neurological: non-focal, normal sensation, moves all 4 limbs Lymphatic: no nodes Psychiatric: normal affect, A&O x 3 Skin: no rash, normal turgor Dx/Plan (1) Morbid obesity Code(s): E66.01 - MORBID (SEVERE) OBESITY DUE TO EXCESS CALORIES Status: Chronic Comment: with BMI 40.6 (2) Pre-eclampsia superimposed on chronic hypertension, delivered Code(s): O11.4 - PRE-EXISTING HTN WITH PRE-ECLAMPSIA, COMP CHILDBIRTH; O10.92 - UNSP PRE-EXISTING HYPERTENSION COMPLICATING CHILDBIRTH Status: Resolved (3) Vaginal delivery Code(s): O80 - ENCOUNTER FOR FULL-TERM UNCOMPLICATED DELIVERY Status: Resolved (4) Hypertension Code(s): I10 - ESSENTIAL (PRIMARY) HYPERTENSION Status: Chronic Comment: not well controlled (5) Diabetes type 2, controlled Code(s): E11.9 - TYPE 2 DIABETES MELLITUS WITHOUT COMPLICATIONS Status: Chronic - Plan cont current plan of care * medication reviewed as below * symptomatic treatment * will sign off * stable for discharge with current meds. Review of Systems - Review of Systems ENT: negative: Ear Pain, Ear Discharge, Nose Pain, Nose Discharge, Nose Congestion, Mouth Pain, Mouth Swelling, Throat Pain, Throat Swelling, Other Respiratory: negative: Cough, Dry, Shortness of Breath, Hemoptysis, SOB with Excertion, Pleuritic Pain, Sputum, Wheezing Cardiovascular: negative: chest pain, palpitations, orthopnea, paroxysmal nocturnal dyspnea, edema, light headedness, other Gastrointestinal: negative: Nausea, Vomiting, Abdominal Pain, Diarrhea, Constipation, Melena, Hematochezia, Other Genitourinary: negative: Dysuria, Frequency, Incontinence, Hematuria, Retention , Other Musculoskeletal: negative: Neck Pain, Shoulder Pain, Arm Pain, Back Pain, Hand Pain, Leg Pain, Foot Pain, Other Skin: negative: Rash, Lesions, Joseph, Bruising, Other - Medications/Allergies Allergies/Adverse Reactions: Allergies Allergy/AdvReac Type Severity Reaction Status Date / Time No Known Allergies Allergy Verified 10/09/18 21:58 Medications: Current Medications Acetaminophen (Tylenol) 1,000 mg PO Q6H PRN PRN Reason: Moderate to Severe Pain (6-10) Last Admin: 10/11/18 19:39 Dose: 1,000 mg Hydrocodone Bitart/Acetaminophen (Dorset 5/325) 1 tab PO Q4H PRN PRN Reason: Moderate Pain (4-6) Hydrocodone Bitart/Acetaminophen (Dorset 5/325) 2 tab PO Q4H PRN PRN Reason: Severe Pain (7-10) Benzocaine/Menthol (Dermoplast) 0 ml TOP PRN PRN PRN Reason: Pain Bisacodyl (Dulcolax) 10 mg WV Q8H PRN PRN Reason: Constipation Citalopram Hydrobromide (Celexa) 10 mg PO DAILY FOR[facility], [facility] Last Admin: 10/17/18 10:47 Dose: 10 mg Diphenhydramine HCl (Benadryl) 25 mg PO Q4H PRN PRN Reason: Itching Docusate Calcium (Surfak) 240 mg PO BID [facility], [facility] Last Admin: 10/17/18 10:35 Dose: 240 mg Fentanyl/Bupivacaine/Sodium Chlor (Epidural L&D Cassette) 0 ml EPIDURAL INF [facility], [facility]1983 Ferrous Sulfate (Feosol) 325 mg PO BID[facility] Last Admin: 10/17/18 10:33 Dose: Not Given Hydralazine HCl (Apresoline) 5 mg SLOW IVP Q15MIN PRN PRN Reason: SBP GREATER THAN 160 Last Admin: 10/11/18 10:21 Dose: 5 mg Hydralazine HCl (Apresoline) 10 mg SLOW IVP Q15MIN PRN PRN Reason: SBP GREATER THAN 160 Last Admin: 10/11/18 13:57 Dose: 10 mg Lactated Ringer's (Lactated Ringer's) 500 mls @ 999 mls/hr IV .Q31M PRN PRN Reason: Blood Pressure Oxytocin/Sodium Chloride (Ns / Pitocin 40 Units/1000 Ml) 1,000 mls @ 0 mls/hr IV .Q0M [facility], [facility] Insulin Glargine 5 units/ (Miscellaneous Medication) 0.05 mls @ 0 mls/hr SC QAM [facility] Last Admin: 10/17/18 10:35 Dose: 0.05 mls Labetalol HCl (Normodyne) 20 mg SLOW IVP Q20M PRN PRN Reason: Hypertension Last Admin: 10/13/18 19:22 Dose: 20 mg Labetalol HCl (Normodyne) 600 mg PO BID [facility] Last Admin: 10/16/18 21:32 Dose: 600 mg Lanolin (Lansinoh Ointment) 0 gm TOP PRN PRN PRN Reason: Breast Care Lisinopril (Zestril) 30 mg PO DAILY [facility] Last Admin: 10/17/18 10:38 Dose: 30 mg Magnesium Hydroxide (Milk Of Magnesium) 30 ml PO DAILY PRN PRN Reason: 3rd/4th degree episiotomy/lac Magnesium Hydroxide (Milk Of Magnesium) 30 ml PO DAILY PRN PRN Reason: 3rd/4th degree episiotomy/lac Metformin HCl (Glucophage) 500 mg PO BID[facility] Last Admin: 10/17/18 10:34 Dose: 500 mg Methylergonovine Maleate (Methergine) 0.2 mg IM Q4H PRN PRN Reason: Bleeding Mineral Oil/White Petrolatum (Eucerin Cream) 0 gm TOP PRN PRN PRN Reason: Itching Naloxone HCl (Narcan) 0.1 mg IVP Q1H PRN PRN Reason: Itching Nifedipine (Procardia Xl) 90 mg PO DAILY [facility] Last Admin: 10/17/18 10:47 Dose: 90 mg Phenyleph/Shark Oil/Min Oil/Petrol (Preparation H Ointment) 0 gm WV TIDPRN PRN PRN Reason: Hemorrhoids Multivit/Folic Acid/Iron ( Vitamin) 1 tab PO DAILY ROSS Last Admin: 10/17/18 10:47 Dose: 1 tab
[2018-10-17] MEDS: Labetalol 100 MG TAB PO SCH (13:50)
--- NOTE | 2018-10-17 14:01 | DIS ---
DATE OF ADMISSION: 10/09/2018 DATE OF DISCHARGE: 10/17/2018 PRIMARY CARE PHYSICIAN: Dr. Paty Hamm. DISCHARGE DISPOSITION: Home. PRIMARY DISCHARGE DIAGNOSES: 1. Hypertension, uncontrolled. 2. Preeclampsia. SECONDARY DISCHARGE DIAGNOSES: 1. Diabetes type 2. 2. History of hypertension. 3. Morbid obesity with BMI of 40. PRIMARY PROCEDURE/OPERATION: Vaginal delivery. RADIOLOGICAL INVESTIGATION: ultrasound. SIGNIFICANT LABS: WBC 8.0, hemoglobin 10.9, and platelet 251. Sodium 141, creatinine 0.62. Electrolytes normal. LFT normal. Urinalysis unremarkable. Syphilis, hepatitis B surface antigen negative. DISCHARGE MEDICATIONS: 1. Ferrous sulfate 325 mg p.o. daily. 2. Celexa 10 mg daily. 3. Metformin 1000 mg b.i.d. 4. Labetalol 600 mg p.o. b.i.d. 5. Levemir 5 units subcu daily. 6. Lisinopril 30 mg p.o. daily. 7. Procardia XL 90 mg p.o. daily. 8. Tylenol 1 g q.6 hourly p.r.n. CONTRAINDICATION: None. CODE STATUS: Full code. 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 [employer] Team was consulted for medical comanagement. TEST RESULTS PENDING ON DISCHARGE: None. ALLERGIES: NO KNOWN DRUG ALLERGIES. DISCHARGE PLAN: Posthospital, the patient will follow up with [employer] [employer] doctor as well as primary care physician in one week. HOSPITAL COURSE: A 38-year-old female, who was admitted under [employer] Service. The patient was in her third trimester and she had hypertension. She was having preeclampsia and that is why she required a vaginal delivery. Subsequently, the patient was having high blood pressure and that is why [employer] was consulted for medical management. We adjusted blood pressure medication as above, and now, the patient's blood pressure is well controlled. The patient is completely asymptomatic, tolerating p.o. well, and ambulatory. The patient is planned for discharge home today and we will sign off. Job ID: [id number]
[2018-10-17 16:23] VITALS: BP 114/58; TEMP 98.3
== END 2018-10-17 17:00 | disposition home or self-care (01) | DRG 806 ==
LOC: L&D/OP 21:35 → L&D 23:06 → 3SE 10-12 17:51
PROVIDERS: ADMIT Obstetrics & Gynecology; ATTEND Obstetrics & Gynecology
PROC: 3E0P7VZ Introduction of Hormone into Female Reproductive, Via Natural or Artificial Opening (ICD-10-PCS; 2018-10-09)
PROC: 10E0XZZ Delivery of Products of Conception, External Approach (ICD-10-PCS; principal; 2018-10-10)
PROC: 10907ZC Drainage of Amniotic Fluid, Therapeutic from Products of Conception, Via Natural or Artificial Opening (ICD-10-PCS; 2018-10-10)
PROC: 0U7C7ZZ Dilation of Cervix, Via Natural or Artificial Opening (ICD-10-PCS; 2018-10-10)
DX: O11.4 Pre-existing hypertension with pre-eclampsia, complicating childbirth (principal); Z68.41 Body mass index [BMI] 40.0-44.9, adult; Z37.0 Single live birth; O24.12 Pre-existing type 2 diabetes mellitus, in childbirth; Z3A.35 35 weeks gestation of pregnancy; E11.9 Type 2 diabetes mellitus without complications; O99.214 Obesity complicating childbirth; E66.01 Morbid (severe) obesity due to excess calories; Z79.4 Long term (current) use of insulin; Z79.899 Other long term (current) drug therapy
CPT/HCPCS: 36415; 36416; 51702; 76815; 80048; 80053; 81003; 82570; 83735; 84156; 84443; 84450; 85025; 85027; 86780; 86850; 86900; 86901; 87077; 87081; 87340; 99285; C1726; J0360; J1940; J2001; J2405; J2540; J3475; J7050

== ENCOUNTER 2018-11-15 11:13 | Outpatient (CLI) | payer BC, OTHER ==
--- NOTE | 2018-11-15 11:48 | RAD ---
TWO VIEWS CHEST: Comparison: None. History: Chest pain. FINDINGS: Two views of the chest show normal sized cardiomediastinal silhouette. There is no evidence of consol idation, mass, or pleural effusion. The bones are unremarkable. IMPRESSION: No evidence of acute cardiopulmonary disease. POS: [facility]
== END 2018-11-15 11:14 | disposition home or self-care (01) ==
LOC: BICRAD 11:13
PROVIDERS: ATTEND Internal Medicine
DX: R07.9 Chest pain, unspecified (principal)
CPT/HCPCS: 71046

== ENCOUNTER 2018-11-15 11:56 | Emergency (ER) | payer BC, OTHER ==
[2018-11-15 12:31] LABS: #Eosinphils 0.2 thou/uL (0.0-0.7); #Lymphocytes 2.2 thou/uL (1.20-3.40); #Monocytes 0.4 thou/uL (0.11-0.59); #Neutrophils 6.1 thou/uL (1.40-6.50); %Basophils 0.4 % (0.0-1.0); %Eosinophils 2.6 % (0.0-10.0); %Lymphocytes 24.3 % (21.0-51.0); %Monocytes 4.3 % (0.0-10.0); %Neutrophils 68.4 % (42.0-75.0); Hemoglobin 12.4 g/dL (12.0-16.0); Mean Corpuscular HGB CONC 32.7 g/dL (32.0-36.0); Mean Corpuscular Hemoglobin 26.4 pg (27.0-31.0); Mean Corpuscular Volume 80.8 fL (78.0-98.0); Mean Platelet Volume 7.4 fL (7.4-10.4); Platelet Count 311 thou/uL (130-400); RBC Distribution Width 14.5 % (11.5-14.5); Red Blood Cell (RBC) Count 4.72 mill/uL (4.20-5.40); White Blood Cell (WBC) Count 8.9 thou/uL (4.8-10.8)
[2018-11-15 12:52] LABS: ALT (SGPT) 44 U/L (8-55); AST (SGOT) 27 U/L (5-34); Albumin 4.3 g/dL (3.5-5.0); Alkaline Phosphatase 96 U/L (40-150); Anion Gap 15 mmol/L (10-20); BUN (Urea Nitrogen) 10 mg/dL (7.0-18.7); Bilirubin, Total 0.3 mg/dL (0.2-1.2); Calc. Creatinine Clearance 0 mL/min (70-130); Calcium 9.5 mg/dL (7.8-10.44); Carbon Dioxide 20 mmol/L (22-29); Chloride 105 mmol/L (98-107); Estimated GFR-MDRD 84; Globulin 3.6 g/dL (2.4-3.5); Glucose 86 mg/dL (70-105); Potassium 4.3 mmol/L (3.5-5.1); Protein, Total 7.9 g/dL (6.0-8.3); Sodium 136 mmol/L (136-145)
[2018-11-15] MEDS ORDERED: Iopamidol 370 76% 100 ML VIAL ONE (13:16)
[2018-11-15 14:06] LABS: INR-International Normal Ratio 0.9; PTT 27.9 SEC (22.9-36.1)
--- NOTE | 2018-11-15 14:12 | CT ---
CTA THORAX UTILIZING IV CONTRAST AND 3D REFORMATTED IMAGING: INDICATIONS: Elevated D-dimer with dyspnea. COMPARISON: Chest radiograph dated 11/15/2018. FINDINGS: No central or segmental pulmonary embolus is present. Heart size and pulmonary vasculature appear wi thin normal limits. No enlarged lymph nodes are evident. No confluent air space opacity is demonstr ated. The visualized upper abdomen reveals no acute abnormality. No acute osseous abnormality is de monstrated. IMPRESSION: No central or segmental pulmonary embolus identified. POS: [facility]
[2018-11-15 14:29] LABS: Uric Acid 6.5 mg/dL (2.6-6.0)
[2018-11-15 15:15] LABS: Bilirubin Negative (Negative); Blood, Urine Large (Negative); Clarity CLOUDY (Clear); Glucose, Urine (Dipstick) Negative (Negative); Leukocyte Small (Negative); Nitrite Negative (Negative); Protein, Urine (Dipstick) Negative (Neg-Trace); Specific Gravity, Urine 1.033 (1.002-1.036); Urobilinogen 0.2 mg/dL (0.2-1.0)
[2018-11-15 15:18] LABS: Pregnancy Test - Urine (BHCG) Negative (Negative); Pregu Control Background? CLEAR/WHITE (CLR/WHITE); Pregu Control Bar Appear? YES (CONTROL BAR); Specific Gravity 1.033 (1.002-1.036)
[2018-11-15 15:19] LABS: Bacteria/HPF None Seen HPF (None Seen); Hyaline Casts/LPF 0-3 HYALINE CAST LPF (0-3 Hyaline); Pathc Cast-AUWi Flag 0.58 (0-2.49); RBC/HPF GREATER THAN 50-TNTC HPF (0-3)
== END 2018-11-15 13:48 | disposition home or self-care (01) ==
LOC: ERS 11:56
DX: O10.93 Unspecified pre-existing hypertension complicating the puerperium (principal); O24.13 Pre-existing type 2 diabetes mellitus, in the puerperium; E11.9 Type 2 diabetes mellitus without complications; O99.345 Other mental disorders complicating the puerperium; F41.9 Anxiety disorder, unspecified; Z79.84 Long term (current) use of oral hypoglycemic drugs; Z79.899 Other long term (current) drug therapy
CPT/HCPCS: 36415; 71046; 71275; 80053; 81003; 81015; 81025; 83615; 84550; 85025; 85379; 85610; 85730; 93005

== ENCOUNTER 2019-09-21 11:28 | Outpatient (CLI) | payer BC ==
--- NOTE | 2019-09-21 11:50 | RAD ---
Exam: Chest 2 views HISTORY:Short of breath Comparison: 11/15/2018 FINDINGS: Lungs: No masses or consolidation. Cardiac silhouette: Normal size Pulmonary vessels: Normal Pleural Spaces: Clear Pneumothorax: None Osseous abnormalities: None of acuity. IMPRESSION: No focal consolidation.
[2019-09-21] MEDS ORDERED: Iopamidol 370 76% 100 ML VIAL ONE ×2 (15:40→15:42)
--- NOTE | 2019-09-21 17:41 | CT ---
CT PULMONARY ANGIOGRAM WITH IV CONTRAST AND 3D POSTPROCESSING 09/21/19 HISTORY: Elevated D-dimer. Shortness of breath, tachycardia. FINDINGS: No filling defects are seen in the pulmonary arterial vasculature to suggest pulmonary embolism. The thoracic aorta is well opacified without aneurysm or dissection. No pleural or pericardial effusions are seen. There are mild patchy ground glass infiltrates in the lung parenchyma bilaterally. A small hiatal hernia was present. There are prominent lymph nodes in the periportal region in the upper abdo men. IMPRESSION: 1. No CT evidence of pulmonary embolism. 2. Mild bilateral ground glass infiltrates. 3. Prominent periportal lymph nodes. Discussed over the telephone with Dr. Paty Hamm at 5:33 p.m. POS: [facility]
== END 2019-09-21 11:29 | disposition home or self-care (01) ==
LOC: BICRAD 11:28 → CT 11:29
PROVIDERS: ATTEND Internal Medicine
DX: R00.0 Tachycardia, unspecified (principal); R06.02 Shortness of breath
CPT/HCPCS: 36415; 71046; 71275; 80053; 85379; Q9967

== ENCOUNTER 2019-10-03 06:59 | Outpatient (CLI) | payer BC ==
--- NOTE | 2019-10-03 07:34 | ULT ---
US Abdominal: 10/03/2019 12:00 AM CLINICAL HISTORY: Transaminitis. STUDY: Complete abdominal ultrasound COMPARISON: None. FINDINGS: Liver: Size: Normal. Echogenicity: Hyperechoic consistent with hepatic steatosis. Contour: Smooth. Mass: None. Common bile duct: 3 mm Gallbladder: Normal. Pancreas: Head, body, and tail appear normal. Inferior vena cava: Normal in caliber Aorta: Normal in caliber Spleen: No focal lesions. Spleen measuring 12.3 cm in length. Right kidney: No pelvicalyceal dilatation Right kidney measuring 11.7 cm in length. Left kidney: No pelvicalyceal dilatation. Left kidney measuring 10.2 cm in length. IMPRESSION: Fatty liver
== END 2019-10-03 07:00 | disposition home or self-care (01) ==
LOC: BICULT 06:59
PROVIDERS: ATTEND Internal Medicine
DX: R74.0 Nonspecific elevation of levels of transaminase and lactic acid dehydrogenase [LDH] (principal); K76.0 Fatty (change of) liver, not elsewhere classified
CPT/HCPCS: 93975